=== PATIENT | male | born 2000 | race Caucasian/White ===

== ENCOUNTER 2019-06-22 09:57 | Emergency (ER) | payer OTHER ==
--- NOTE | 2019-06-22 10:43 | UC ---
Throat Pain/Nasal Tevin HPI - HPI Summary HPI Summary: 18-year-old college student who has had cold symptoms for 2 days. He also has allergies which have been bothering him over the past 2 weeks however states he does not have very much head congestion mostly a cough. - History of Current Complaint Chief Complaint: UCRespiratory Stated Complaint: COUGH,CONGESTION Time Seen by Provider: 06/22/19 10:42 Hx Obtained From: Patient Onset/Duration: Gradual Onset Severity: Mild Pain Intensity: 0 Cough: Nonproductive Associated Signs & Symptoms: Positive: Negative Related History: Seasonal Allergies - Allergies/Home Medications Allergies/Adverse Reactions: Allergies Allergy/AdvReac Type Severity Reaction Status Date / Time No Known Allergies Allergy Verified 06/22/19 10:30 Home Medications: Home Medications NK [No Home Medications Reported] 06/22/19 [History Confirmed 06/22/19] PMH/Surg Hx/FS Hx/Imm Hx Previously Healthy: Yes - Surgical History Surgical History: Yes Surgery Procedure, Year, and Place: Tonsilectomy. Appendectomy - Family History Known Family History: Positive: Non-Contributory - Social History Occupation: Student Lives: Dormitory/Roommates Alcohol Use: Weekly Substance Use Type: None Smoking Status (MU): Never Smoked Tobacco Review of Systems All Other Systems Reviewed And Are Negative: Yes ENT: Positive: Nasal Discharge Respiratory: Positive: Cough - Nonproductive cough. Is Patient Immunocompromised?: No Physical Exam Triage Information Reviewed: Yes Appearance: Well-Appearing, No Pain Distress, Well-Nourished Vital Signs: Initial Vital Signs Temp 98.5 F 06/22/19 10:30 Pulse 83 06/22/19 10:30 Resp 16 06/22/19 10:30 BP 135/80 06/22/19 10:30 Pulse Ox 100 06/22/19 10:30 Vital Signs Reviewed: Yes Eyes: Positive: Conjunctiva Clear ENT: Positive: Pharynx normal, Nasal drainage - Clear nasal coryza, TMs normal, Uvula midline Neck: Positive: Supple, Nontender, No Lymphadenopathy Respiratory: Positive: Lungs clear, Normal breath sounds, No respiratory distress, No accessory muscle use, Other: - Loose cough, no respiratory distress. Cardiovascular: Positive: RRR, No Murmur, Pulses Normal, Brisk Capillary Refill Musculoskeletal Exam: Normal Neurological Exam: Normal Psychological Exam: Normal Skin Exam: Normal Throat Pain/Nasal Course/Dx - Course Course Of Treatment: Patient is comfortable here. He can continue his present medications and follow up at the [facility] if no improvement 4- 5 days. - Differential Dx/Diagnosis Provider Diagnosis: URI (upper respiratory infection) Discharge ED - Sign-Out/Discharge Documenting (check all that apply): Patient Departure All imaging exams completed and their final reports reviewed: No Studies - Discharge Plan Condition: Good Disposition: HOME Patient Education Materials: Upper Respiratory Infection (DC) Referrals: No Primary Care Phys,NOPCP [Primary Care Provider] - KYLIE GRANT [Appsperse, APPLICATION, OTHER] - Additional Instructions: Increase fluids, continue your Zyrtec, follow-up at the [facility] if no improvement in 4 or 5 days. - Billing Disposition and Condition Condition: GOOD Disposition: Home
== END 2019-06-22 10:53 | disposition home or self-care (01) ==
LOC: UCCORT 09:57
DX: J06.9 Acute upper respiratory infection, unspecified (principal)
CPT/HCPCS: 99201; G0463